=== PATIENT | female | born 1980 | race American Indian/Alaskan Native ===

== ENCOUNTER 2020-04-28 11:40 | Emergency (ER) | payer SELFPAY ==
[2020-04-28 11:59] VITALS: BP 136/92
== END 2020-04-28 18:00 | disposition left against medical advice (07) ==
LOC: ED 11:40
DX: R42 Dizziness and giddiness (principal); Z53.21 Procedure and treatment not carried out due to patient leaving prior to being seen by health care provider

== ENCOUNTER 2021-10-31 07:47 | Outpatient (CLI) | payer OTHER ==
--- NOTE | 2021-10-31 09:23 | Cat Scan Report ---
CT ABDOMEN AND PELVIS WITHOUT CONTRAST INDICATION / CLINICAL INFORMATION: R10.13 EPIGASTRIC PAIN. TECHNIQUE: Axial CT images were obtained through the abdomen and pelvis without IV contrast. All CT scans at [facility] location are performed using CT dose reduction for ALARA by means of automated exposure control. COMPARISON: None available. FINDINGS: LOWER CHEST: No significant abnormality. LIVER: No significant abnormality. GALLBLADDER: No significant abnormality. BILE DUCTS: No significant abnormality. PANCREAS: No significant abnormality. SPLEEN: No significant abnormality. ADRENALS: No significant abnormality. RIGHT KIDNEY and URETER: No significant abnormality. LEFT KIDNEY and URETER: No significant abnormality. STOMACH and SMALL BOWEL: Much of the stomach is collapsed but there does appear to be some increased mucosal thickening of the distal gastric antrum and distal body of the stomach.. COLON: No significant abnormality. APPENDIX: No significant abnormality. PERITONEUM: No free fluid. No free air. No fluid collection. LYMPH NODES: No significant adenopathy. AORTA and ARTERIES: No significant abnormality. IVC and VEINS: No significant abnormality. URINARY BLADDER: No significant abnormality. REPRODUCTIVE ORGANS: Small cyst are noted within both adnexa, difficult to characterize without IV co ntrast ADDITIONAL FINDINGS: None. SKELETAL SYSTEM: No significant abnormality. IMPRESSION: 1. Mild gastritis Signer Name: Kennedy De La Cruz MD Signed: 10/31/2021 9:19 AM Workstation Name: [id number]
== END 2021-10-31 07:48 | disposition home or self-care (01) ==
LOC: CT 07:47
PROVIDERS: ATTEND Surgery
DX: K29.70 Gastritis, unspecified, without bleeding (principal); D28.7 Benign neoplasm of other specified female genital organs; R10.13 Epigastric pain
CPT/HCPCS: 74176